=== PATIENT | male | born 1980 | race Caucasian/White ===

== ENCOUNTER 2019-01-22 21:52 | Inpatient (IN) | payer OTHER, SELFPAY ==
--- NOTE | ~2019-01-22 | XR_ITS ---
EXAMINATION: XR chest ET placement DATE: 01/24/2019 21:20 INDICATION: Intubation. TECHNIQUE: A single frontal view of the chest was obtained. COMPARISON: Chest single view 02/13/2017 FINDINGS: There is mild scarring at the lung apices. No pleural effusion or pneumothorax. The heart s ize is normal. The endotracheal tube tip is 9.4 cm above the liz. The nasogastric tube tip is in t he stomach with proximal side port in the distal esophagus. IMPRESSION: 1. Endotracheal tube tip 9.4 cm above the liz. Advancement is recommended. 2. Nasogastric tube tip in the stomach with proximal side port in the distal esophagus. Advancement 5 mm is recommended. Reviewed, dictated and finalized at location A. UCTION OFFICER IMPRESSION: 1. Endotracheal tube tip 9.4 cm above the liz. Advancement is recommended. 2. Nasogastric tube tip in the stomach with proximal side port in the distal es ophagus. Advancement 5 mm is recommended.
--- NOTE | ~2019-01-22 | XR_ITS ---
EXAMINATION: XR abdomen NG/feed tube insert DATE: 01/24/2019 21:19 INDICATION: Nasogastric tube placement. TECHNIQUE: An upright view of the abdomen was obtained. COMPARISON: None. FINDINGS: The lower abdomen is not included. There are no dilated loops of bowel. The nasogastric tub e tip is in the stomach. The proximal side port is in the distal esophagus. IMPRESSION: 1. Nasogastric tube tip in the stomach with proximal side port in the distal esophagus. Advancement 5 cm is recommended. Reviewed, dictated and finalized at location A. GEMENT MGR IMPRESSION: 1. Nasogastric tube tip in the stomach with proximal side port in the distal es ophagus. Advancement 5 cm is recommended.
[2019-01-22 21:55] VITALS: BP 151/104; PULSE 109; RESP 17; TEMP 36.9; O2SAT 99
--- NOTE | 2019-01-22 22:00 | ED.ABDPAIN ---
HPI - Abdominal Pain General Chief Complaint: Abdominal Pain Stated Complaint: ABD Time Seen by Provider: 01/22/19 21:59 Source: patient Mode of arrival: EMS Limitations: no limitations History of Present Illness HPI narrative: The pt is a 39 y/o male who presents to the ED, via EMS, c/o constant LUQ ABD pain onset one week ago. Pt states that he has a PMHx of pancreatitis, and that this pain feels similar to those episodes. He notes that he has a social history of alcoholism, with him drinking 1 gallon of alcohol per day. He notes that he only had a beer today, but that he has experienced decreased intake. He reports N/V, but denies fever. He notes that his sugars have been well maintained. MD elicited complaint: abdominal pain (LUQ) Pertinent past history: other (PMHx of Pancreatitis) Onset (ago): week(s) (1) Pain Consistency: constant Location: LUQ Severity: similar to previous episodes Associated symptoms: nausea, vomiting and other (Decreased intake) Related Data Home Medications Medication Instructions Recorded Confirmed gabapentin 800 mg PO BID 01/05/19 01/12/19 insulin lispro [Admelog U-100 1 sliding scale dose SUBCUT 01/05/19 01/12/19 Insulin lispro] USEASDIRECTD Allergies Allergy/AdvReac Type Severity Reaction Status Date / Time No Known Allergies Allergy Unknown Verified 01/12/19 13:54 Review of Systems Review of Systems: All systems reviewed & are unremarkable except as noted in HPI and below Constitutional: Constitutional: Denies fever(s) and Reports other (Decreased intake) Gastrointestinal: Gastrointestinal: Reports abdominal pain (LUQ), Reports nausea and Reports vomiting PMFSH Past Medical History Medical History Chronic anemia (Acute) Depression with anxiety (Acute) GERD (gastroesophageal reflux disease) (Acute) Hepatitis C (Acute) Kidney stone (Acute) Pancreatitis (Acute) Pancreatitis, acute (Acute) Pancreatitis, chronic (Acute) Polysubstance abuse (Acute) Type I diabetes mellitus (Chronic) Surgical History Surgical History H/O nasal septoplasty (Acute) Family History Family History Father Brain cancer Sibling Diabetes mellitus Mother COPD (chronic obstructive pulmonary disease) Social History Social History Social History: The patient lives in [place]. He has 2 teenaged children, although they are not currently living with him at this time. He is unemployed. He smokes 0.5 to 1 packs of cigarettes per day for 20 years. He has a longstanding history of alcohol abuse, and drinks most days. He does not qualify his alcohol intake. He has a history of illicit drug use, including marijuana and heroin, but has been clean ?for quite some time.? He does not designate a surrogate decision maker. Smoking packs per day: 0.5 Smoking cigarettes per day: 10.0 Smoking status: Current every day smoker Tobacco type: cigarettes Alcohol intake: current Drinks per week: 80 Substance use: unknown Other substance usage details: the patient stated his younger years he used all kinds of Street drugs Last use: many years ago Additional living arrangements comments: new town housing Additional occupation/education comments: applying for disability Gender identity (if verbalized by the patient): Male Spiritual care concerns: No Agree to blood products: Yes Exam Narrative: Exam Narrative: APPEARANCE: No acute distress, nontoxic, resting in bed EYES: EOMI HEENT: Normocephalic, atraumatic, oral mucosa dry RESPIRATORY: No respiratory distress Clear to auscultation bilaterally with no rhonchi wheezing or rales. CARDIOVASCULAR: Regular rate and rhythm without murmurs rubs or gallops. ABDOMINAL: Soft, nondistended, tender to palpation and epigastric and rig
[2019-01-22] MEDS: SODIUM CHLORIDE 0.9% IV 1,000 ML 999 ML IV CONT ×2 (22:11→22:37)
[2019-01-22 22:17] LABS: Basophils Percent Auto 0.5 % (0.2-1.2); Eosinophils Absolute Auto 0.1 K/mm3 (0-0.3); Eosinophils Percent Auto 1.2 % (0-4.4); Hematocrit 41.4 % (42.0-52.0); Hemoglobin 14.4 g/dL (14.0-18.0); Immature Granulocyte Absolute 0.01 K/mm3 (0.00-0.031); Immature Granulocyte Percent A 0.2 % (0-0.5); Lymphocytes Absolute Auto 1.96 K/mm3 (0.9-3.2); Mean Corpuscular HGB Conc 34.8 g/dl (32-36); Mean Corpuscular Hemoglobin 33.3 pg (26-34); Mean Corpuscular Volume 95.6 fl (80-100); Mean Platelet Volume 9.1 fl (7.4-10.4); Monocytes Absolute Auto 0.5 K/mm3 (0.1-0.6); Monocytes Percent Auto 7.8 % (2.6-8.5); Neutrophils Absolute Auto 3.3 K/mm3 (1.3-6.7); Neutrophils Percent Auto 56.3 % (45.5-73.1); Platelet Count Result 288 k/mm3 (150-375); Red Blood Count 4.33 M/mm3 (4.6-6.20); Red Cell Distribution Width 13.2 % (11.5-14.5); White Blood Count 5.8 K/mm3 (4.5-10.0)
--- NOTE | 2019-01-22 22:22 | PC.NURSE ---
Pt asking for pain medication. EDP notified.
[2019-01-22 22:26] LABS: Add Urine Microscopic? YES; Appearance Urine Clear (Clear); Bilirubin Urine Negative (Negative); Blood Urine 1+ (Negative); Color Urine Straw (Yellow); Glucose Urine UA 3+ mg/dL (Negative); Ketones Urine Negative (Negative); Leukocyte Esterase Ur Negative LEU/UL (Negative); Mucus Urine Rare /lpf; Nitrate Urine Negative (Negative); Protein Urine 1+ mg/dL (Negative); RBC Urine 0-2 /hpf (0-2); Specific Grav Ur 1.011 (1.001-1.035); Squamous Epithelial Cell Urine Rare /hpf (Few); Urobilinogen Urine Negative mg/dL (<2.0); WBC Urine 0-3
[2019-01-22 22:26] LABS: Glucose Point of Care 217 (65-105)
[2019-01-22 22:29] LABS: Ethanol 246 mg/dL (<10)
[2019-01-22 22:30] LABS: Alanine Aminotransferase 31 U/L (4-50); Albumin Level 4.6 g/dL (3.5-5.1); Alkaline Phosphatase 141 U/L (38-126); Aspartate Amino Transferase 60 U/L (17-59); Bilirubin,Total 0.6 mg/dL (0.2-1.3); Blood Urea Nitrogen 6 mg/dL (9-20); Calcium 9.4 mg/dL (8.4-10.2); Carbon Dioxide 25 mmol/L (22-30); Chloride 94 mmol/L (98-107); Estimated Glomerular Filt Rate > 60; Glucose 271 mg/dL (75-110); Lipase 1748 U/L (23-300); Potassium 3.6 mmol/L (3.4-5.0); Sodium 137 mmol/L (137-145)
[2019-01-22] MEDS: MORPHINE SULFATE 4 MG/ML INJ IV PUSH (22:31)
[2019-01-22 23:01] VITALS: TEMP 36.9
[2019-01-22 23:30] VITALS: BP 151/94; PULSE 80; RESP 15; O2SAT 99
[2019-01-22] MEDS: THIAMINE HCL 200 MG/2 ML VIAL 100 MG IV PUSH (23:41)
[2019-01-23 00:11] LABS: Alveolar/Arterial O2 Gradient 20.8 mmHg; Base Excess ABG -2.7 mEq/l (+/-2.0); Device ROOM AIR; Fractional Inspired Oxygen 21 %; HCO3 ABG 20.5 mEq/l (22.0-26.0); Modified Allen's Test Pass; Oxygen Content ABG 17.7 %vol (16.0-22.0); Oxygen Saturation ABG 97.3 % (95.0-100.0); Oxyhemoglobin 92.2 % THb (90.0-100.0); PCO2 ABG 31.1 mmHg (35.0-45.0); PO2 ABG 91.7 mmHg (80.0-100.0); PO2 FiO2 Ratio Arterial Blood 4.37 %; Site Drawn LEFT RADIAL; Total Hemoglobin 13.6 g/dL (12.0-18.0); pH ABG 7.436 (7.350-7.450)
[2019-01-23] MEDS: MORPHINE SULFATE 2 MG/ML INJ IV PUSH (00:34)
[2019-01-23 00:55] VITALS: BP 131/93; PULSE 91; RESP 19; TEMP 36.7; O2SAT 100
[2019-01-23 01:10] VITALS: BP 149/92; PULSE 86; RESP 20; TEMP 36.7; O2SAT 97; BMI 21.7
[2019-01-23] MEDS: ONDANSETRON INJ 4 MG/2 ML VIAL IV PUSH ×4 (01:19→14:46)
[2019-01-23] MEDS: SODIUM CHLORIDE 0.9% IV 1,000 ML 150 ML IV CONT ×4 (01:20→21:06)
[2019-01-23] MEDS: MORPHINE SULFATE 4 MG/ML INJ IV PUSH ×7 (02:23→23:34)
[2019-01-23 03:25] LABS: Glucose Point of Care 104 (65-105)
[2019-01-23 05:48] VITALS: BP 154/85; PULSE 81; RESP 18; TEMP 36.2; O2SAT 97
[2019-01-23] MEDS: LORAZEPAM INJ 2 MG/ML VIAL 1 MG IV PUSH ×3 (11:53→21:10)
[2019-01-23] MEDS: INSULIN GLARGINE (*BKC) 100 UNITS/ML 10 UNITS SUB-Q (12:41)
[2019-01-23 13:18] LABS: Glucose Point of Care 223 (65-105)
[2019-01-23 14:00] VITALS: BP 156/85; PULSE 75; RESP 18; TEMP 36.1; O2SAT 99
[2019-01-23 17:34] LABS: Glucose Point of Care 159 (65-105)
--- NOTE | 2019-01-23 20:25 | HP_ITS ---
DATE OF SERVICE: 01/23/2019 TIME OF [id number] ENCOUNTER: 11:30 a.m. CHIEF COMPLAINT: Nausea, vomiting, abdominal pain. HISTORY OF PRESENT ILLNESS: The patient is a 39-year-old, diabetic, alcoholic with recurrent pancreatitis who was discharged from the hospital on the 12th after treatment for pancreatitis. He said at that time he was doing fairly well, pain had subsided and he was doing well. Since he has been home, he started drinking alcohol again and has been drinking as much as a gallon of vodka a day. On the day of admission, he had some beer, started having nausea and vomiting, and the abdominal pain gradually worsened, so he came to the emergency room for evaluation. Here, he was found to have a lipase of 1700 and thus was admitted for evaluation and treatment of the same, got evaluated with CT scans, sonograms, lipid levels, etc. in the past. Etiology of his pancreatitis was thought to be alcohol. MEDICATIONS: On admission, his medications included: 1. Gabapentin 800 t.i.d. 2. NovoLog 5 units subcu t.i.d. 3. Lantus 25 units q.12. SOCIAL HISTORY: As stated, drinking worth of a gallon of vodka a day and smokes about half-pack cigarettes a day, and has done so for years. Years ago did drugs, but has been clean for some time. Presently, he lives alone and has been trying to apply for disability. FAMILY HISTORY: Father has preceded him in , had brain carcinoma. Mother is living, has COPD. REVIEW OF SYSTEMS: CONSTITUTIONAL: His weight as far as he knows is stable, but he had not been able to eat anything for several days. EYES: No double vision or scotoma. MOUTH: No pharyngitis or laryngitis. PULMONARY: No increased shortness of breath, wheezing or cough. CV: No chest pain or palpitation. GI: As per present illness. He said he did have a bowel movement yesterday. : No dysuria. No hematuria. MUSCULOSKELETAL: No particular joint discomfort. INTEGUMENT: No skin breakdown or rashes. NEUROPSYCH: No seizures. No syncope. The remainder of review of systems if not documented here were evaluated and found to be negative. PHYSICAL EXAMINATION: VITAL SIGNS: At present time, his blood pressure was 154/84, pulse 75, respirations 18 per minute, sat 99% on room air. HEENT: Pupils are equal and reactive to light. Sclerae anicteric. LUNGS: Clear. No wheezing or consolidation. CV: No murmurs, gallops, rubs, or clicks. ABDOMEN: Soft. There is some tenderness, especially epigastric area. Bowel sounds are decreased to absent at this time. EXTREMITIES: Without edema. Distal pulses are 2+. NEUROLOGICAL: He is alert. He is oriented. Cranial nerves are intact. No focal deficits . PSYCH in obvious distress and pain LABORATORY DATA: His white count is 5.8, hemoglobin 14.4, hematocrit 41, MCV of 95, platelets 288, with 56 segs, 34 lymphs. Arterial blood gas 7.43, pCO2 of 31, PO2 of 91. His sodium 137, potassium 3.6, chloride 94, total CO2 of 25, BUN 6, creatinine 0.5, glucose 271 initially, bilirubin 0.6, AST slightly elevated at 60, ALT normal at 31, alkaline phosphatase 141. BNP as stated 1748. Urinalysis is negative. His ethanol level, ethyl, was 246. ASSESSMENT: 1. Pancreatitis, alcohol-induced. Hydrate aggressively. Pain control. 2. Diabetes mellitus. CO2 is normal. Sugar is fair. We will give basal Lantus and sliding scale. 3. ETOH abuse, could be having some early withdrawal at the present time. Continue hydration p.r.n. IV Ativan. 4. DVT prophylaxis will be the Lovenox. He will need more than a 2-midnight stay again. D I MT: Onur CHINCHILLA
[2019-01-23 22:00] VITALS: BP 153/92; PULSE 85; RESP 20; TEMP 36.1; O2SAT 99
[2019-01-23 22:46] LABS: Glucose Point of Care 111 (65-105)
[2019-01-24] VITALS (10 sets, daily range): BP systolic 89–149; BP diastolic 61–92; PULSE 58–104; RESP 16–20; TEMP 36.2; O2SAT 99–100
[2019-01-24] MEDS: LORAZEPAM INJ 2 MG/ML VIAL 1 MG IV PUSH ×3 (01:19→08:56)
[2019-01-24] MEDS: ONDANSETRON INJ 4 MG/2 ML VIAL IV PUSH ×2 (03:13→06:47)
[2019-01-24] MEDS: MORPHINE SULFATE 4 MG/ML INJ IV PUSH ×5 (03:16→19:00)
[2019-01-24] MEDS: SODIUM CHLORIDE 0.9% IV 1,000 ML 150 ML IV CONT (03:58)
[2019-01-24 05:55] LABS: Basophils Percent Auto 0.6 % (0.2-1.2); Eosinophils Absolute Auto 0.4 K/mm3 (0-0.3); Eosinophils Percent Auto 6.5 % (0-4.4); Hematocrit 37.5 % (42.0-52.0); Hemoglobin 12.6 g/dL (14.0-18.0); Immature Granulocyte Absolute 0.01 K/mm3 (0.00-0.031); Immature Granulocyte Percent A 0.2 % (0-0.5); Lymphocytes Absolute Auto 1.23 K/mm3 (0.9-3.2); Lymphocytes Percent Auto 22.9 % (18.3-44.2); Mean Corpuscular HGB Conc 33.6 g/dl (32-36); Mean Corpuscular Hemoglobin 32.5 pg (26-34); Mean Corpuscular Volume 96.6 fl (80-100); Mean Platelet Volume 9.7 fl (7.4-10.4); Monocytes Absolute Auto 0.4 K/mm3 (0.1-0.6); Monocytes Percent Auto 6.9 % (2.6-8.5); Neutrophils Absolute Auto 3.4 K/mm3 (1.3-6.7); Neutrophils Percent Auto 62.9 % (45.5-73.1); Platelet Count Result 155 k/mm3 (150-375); Red Blood Count 3.88 M/mm3 (4.6-6.20); Red Cell Distribution Width 12.4 % (11.5-14.5); White Blood Count 5.4 K/mm3 (4.5-10.0)
[2019-01-24 06:06] LABS: Magnesium 1.4 mg/dL (1.6-2.3)
[2019-01-24 06:08] LABS: Alanine Aminotransferase 26 U/L (4-50); Albumin Level 3.7 g/dL (3.5-5.1); Alkaline Phosphatase 108 U/L (38-126); Aspartate Amino Transferase 44 U/L (17-59); Bilirubin,Total 0.9 mg/dL (0.2-1.3); Blood Urea Nitrogen 5 mg/dL (9-20); Calcium 7.8 mg/dL (8.4-10.2); Carbon Dioxide 22 mmol/L (22-30); Chloride 95 mmol/L (98-107); Estimated CRCL calculation 230 ml/min; Estimated Glomerular Filt Rate > 60; Glucose 166 mg/dL (75-110); Lipase 505 U/L (23-300); Potassium 3.4 mmol/L (3.4-5.0); Sodium 130 mmol/L (137-145)
[2019-01-24] MEDS: ENOXAPARIN 40 MG/0.4 ML SYRINGE SUB-Q (09:01)
[2019-01-24] MEDS: POTASSIUM PHOS,M-BASIC-D-BASIC 20 MMOL in SODIUM CHLORIDE 0.9% IV 250 ML 62.5 MMOL IVPB (09:03)
[2019-01-24 09:26] LABS: Glucose Point of Care 162 (65-105)
[2019-01-24] MEDS: CHLORDIAZEPOXIDE 25 MG CAPSULE 50 MG PO ×2 (10:22→17:26)
[2019-01-24] MEDS: INSULIN GLARGINE (*BKC) 100 UNITS/ML 15 UNITS SUB-Q (11:35)
--- NOTE | 2019-01-24 12:41 | PM.IMPN ---
Progress Note: A&P Assessment and Plan (1) Pancreatitis, acute: Qualifiers: Acute pancreatitis complication: unspecified Pancreatitis type: unspecified pancreatitis type Qualified Code(s): K85.90 - Acute pancreatitis without necrosis or infection, unspecified Code(s): K85.90 - Acute pancreatitis without necrosis or infection, unspecified Status: Acute Assessment and Plan: Lipase is dropped to 505 and bowel sounds increasing so will try clear liquids Replace potassium, magnesium, and phosphorus (2) Type I diabetes mellitus: Qualifiers: Diabetes mellitus complication status: with hyperglycemia Qualified Code(s): E10.65 - Type 1 diabetes mellitus with hyperglycemia Code(s): E10.9 - Type 1 diabetes mellitus without complications Status: Chronic Assessment and Plan: Blood sugar fair controlled. Low-dose Lantus with sliding scale (3) Alcohol abuse: Code(s): F10.10 - Alcohol abuse, uncomplicated Status: Acute Assessment and Plan: For thiamin. Appears to be exhibiting symptoms of withdrawal. Will increase his sedation with increasing doses of Ativan and had p.o. Librium (4) DVT prophylaxis: Code(s): Z29.9 - Encounter for prophylactic measures, unspecified Status: Acute Assessment and Plan: Lovenox Subjective Interval history: Date of visit 01/24. 39-year-old diabetic alcoholic admitted with recurrent pancreatitis. Pain less this a.m. but very agitated. Requiring higher doses of benzos diazepam had had episodes of hallucination last p.m. Exam Narrative: Exam Narrative: Blood pressure 146/84 pulse is 74 saturating 99% on room air afebrile Pupils equal reactive light sclera anicteric Lungs clear CV regular rate rhythm no murmurs Abdomen soft bowel sounds are slightly decreased but present today, less tender Extremities without edema distal pulses are 2+ Neuro alert and appears oriented at present time but apparently was hallucinating earlier. No focal deficits Objective Data Vital Signs Vital Signs: Vital Signs - 24 hr 01/23/19 14:00 01/23/19 22:00 01/24/19 06:00 Temperature 36.1 C L 36.1 C L 36.2 C L Pulse Rate 75 85 74 Respiratory Rate 18 20 20 Blood Pressure 156/85 H 153/92 H 149/89 H Pulse Oximetry 99 99 99 Intake/Output Intake/Output: Intake & Output 01/21/19 01/22/19 01/23/19 01/24/19 23:59 23:59 23:59 23:59 Intake Total 1999 2830 1132 Output Total 2150 1000 Balance 1999 682 132 Meds/Results Medications: Active Medications Generic Name Dose Route Start Last Admin Trade Name Freq PRN Reason Stop Dose Admin Chlordiazepoxide HCl 50 mg 01/24/19 12:00 01/24/19 10:22 Librium Po PO 50 mg Q6HR ROSE Administration Dextrose 12.5 gm 01/23/19 12:01 Dextrose 50% Syringe IV PUSH PRN PRN Hypoglycemia Protocol Enoxaparin Sodium 40 mg 01/24/19 09:00 01/24/19 09:01 Lovenox SUB-Q 40 mg DAILY ROSE Administration Glucagon 1 mg 01/23/19 12:01 Glucagon For Inj IM PRN PRN Hypoglycemia Protocol Glucose 15 gm 01/23/19 12:01 Glutose 15 PO PRN PRN Hypoglycemia Protocol Sodium Chloride 1,000 mls @ 150 mls/hr 01/23/19 01:05 01/24/19 09:03 Normal Saline Iv IV CONT 0 mls/hr .Q6H40M ROSE Infusion Dextrose 1,000 mls @ 100 mls/hr 01/23/19 12:01 Dextrose 5% 1,000 Ml IVPB PRN PRN Hypoglycemia Protocol Insulin Aspart 3 - 6 units 01/23/19 17:00 01/24/19 08:59 Novolog SUB-Q Not Given TIDWM ROSE Protocol Lorazepam 2 mg 01/24/19 12:37 Ativan IV PUSH Q1H PRN Anxiety Morphine Sulfate 4 mg 01/23/19 11:26 01/24/19 10:49 Morphine Sulfate Inj IV PUSH 4 mg Q3-4H PRN Administration Pain Rated 7-10 Nicotine 1 patch 01/23/19 13:35 01/24/19 09:46 Nicoderm Cq 21 Mg TRANSDERM 1 patch QAM ROSE Administration Ondansetron HCl 4 mg 01/23/19 00:29 01/24/19 06:47
[2019-01-24] MEDS: LORAZEPAM INJ 2 MG/ML VIAL IV PUSH ×3 (12:43→20:09)
--- NOTE | 2019-01-24 12:43 | PC.NURSE ---
Dr. Torres notified of pt more confused and and thinking he is in [place]. Not easily redirected. New orders received.
[2019-01-24] MEDS: INSULIN ASPART (*BKC) 100 UNITS/ML 25 UNITS SUB-Q (13:17)
[2019-01-24] MEDS: INSULIN GLARGINE (*BKC) 100 UNITS/ML 10 UNITS SUB-Q ×2 (13:21→20:12)
[2019-01-24] MEDS: MAGNESIUM SULF 2 GM/WATER 50ML 2 GM/50 ML BAG IVPB (13:23)
--- NOTE | 2019-01-24 13:45 | PC.NURSE ---
PT CONFUSED AND TRYING TO LEAVE THE FLOOR. GLUCODSE ELEVATED >500. PT WALKED OFF FLOOR AND HEADED OUT THE DOOR. IV TAKEN OUT. DR KAMARA NOTIFIED
--- NOTE | 2019-01-24 13:49 | PC.NURSE ---
Patient pacing back and forth in room, wanting his IV out and wanting to go smoke. Patient was given insulin for blood glucose of 567. Recently received IV Ativan. Discussed all risks with patient and explained to him that he is being treated for multiple issues. Patient disoriented at times, thinking he is in [place]. At other times, he is aware that he is in the hospital and states I just want to smoke. Explained to patient that he cannot go outside to smoke since he has received multiple meds and needs close monitoring. Patient states he is leaving whether we want him to or not. He states his friend is coming to bring him bus tokens. Patient then got up and pulled at his IV stating take it out . I removed patient's IV needle and patient grabbed his stuff and walked to the elevator and left. Called Dr. Torres and made him aware of the situation. Also notified security who stated they would go downstairs to assess the situation as well.
[2019-01-24 14:04] LABS: Glucose Point of Care > 500 (65-105)
--- NOTE | 2019-01-24 14:18 | PC.NURSE ---
Patient returned to floor with staff per wheelchair and IV restarted. Dr. Torres aware that patient is back. Patient to transfer to ICU-7. SBAR faxed to ICU.
--- NOTE | 2019-01-24 14:41 | PC.NURSE ---
Patient transferred to ICU via wheelchair with staff. Report given to Sera RN and SBAR faxed. Patient transferred to ICU-7.
--- NOTE | 2019-01-24 15:52 | WPDCNINT ---
Assessment and Plan Assessment and plan (1) Pancreatitis, acute: Qualifiers: Acute pancreatitis complication: unspecified Pancreatitis type: unspecified pancreatitis type Qualified Code(s): K85.90 - Acute pancreatitis without necrosis or infection, unspecified Code(s): K85.90 - Acute pancreatitis without necrosis or infection, unspecified Status: Acute Assessment and Plan: patient presented with abdominal pain, nausea vomiting. Elevated lipase on admission, patient was hydrated adequately and lipase has been trending down. - Patient started on clear liquids - continue to monitor lipase level - acute on chronic pancreatitis likely related to alcohol - control pain with morphine (2) Type I diabetes mellitus: Qualifiers: Diabetes mellitus complication status: with hyperglycemia Qualified Code(s): E10.65 - Type 1 diabetes mellitus with hyperglycemia Code(s): E10.9 - Type 1 diabetes mellitus without complications Status: Chronic Assessment and Plan: blood sugars have been stable - will discontinue D5 in the IV fluids and start patient on LR - started Lantus 10 units q.h.s. starting today (3) Alcohol abuse: Code(s): F10.10 - Alcohol abuse, uncomplicated Status: Acute Assessment and Plan: alcohol abuse, patient drinks 1 gallon of vodka daily - patient with symptoms of alcohol withdrawal and was transferred to the ICU for Precedex infusion as he received increasing doses of Ativan and Librium - continue thiamine and folic acid - patient started on Precedex, (4) DVT prophylaxis: Code(s): Z29.9 - Encounter for prophylactic measures, unspecified Status: Acute Assessment and Plan: Lovenox Additional Plan discussed with patient and updated with his condition and plan of care. He is requesting for pain medications which have been ordered for him and will be dispensed code status: full code critical care time spent: 38 minutes Consult date: 01/24/19 Time Seen: 15:33 Reason for consult: alcohol withdrawal, acute chronic pancreatitis, hyperglycemia HPI: Wes Pan II is a 39 year old male with significant past medical history of chronic anemia, depression anxiety, genital herpes, GERD, kidney stones, acute on chronic pancreatitis, polysubstance abuse, alcoholism, type 1 diabetes with multiple admissions for DKA presented to the ED on 01/22/2019 with complains of epigastric abdominal pain. Patient also complained of nausea and vomiting. patient also complained of decreased oral intake, and is known to drink a gallon of vodka a day and smokes half a packet cigarettes per day of for many years. patient's lipase was elevated to 1700. Patient's alcohol levels were 246 on admission. Patient was diagnosed with alcoholic induced pancreatitis and was given IV fluid hydration. Patient also has a history of alcohol abuse and this afternoon patient was exhibiting symptoms of alcohol withdrawal, was given increasing doses of Ativan and p.o. Librium. Patient was transfer the ICU for Precedex infusion. Patient seen examined upon arrival to the ICU. Is awake, alert answers to questions appropriately, complaining of epigastric abdominal pain. blood sugars a 181 in the ICU, requesting for pain medications. Patient is tremulous, but calm on Precedex infusion 0.2 mcg. Patient denies any nausea, vomiting, chest pain, shortness of breath at this time Review of Systems Review of Systems: All systems reviewed & are unremarkable except as noted in HPI and below PMFSH Past Medical History Medical History Chronic anemia (Acute) Depression with anxiety (Acute) GERD (gastroesophageal reflux disease) (Acute) Hepatitis C (Acute) Kidney stone (Acute) Pancreatitis (Acute) Pancreatitis, acute (Acute) Pancreatitis, chronic (Acute) Polysubstance abuse (Acute) Type I diabe
[2019-01-24 16:06] LABS: Glucose Point of Care 182 (65-105)
[2019-01-24] MEDS: LACTATED RINGERS 1,000 ML 150 ML IV CONT (16:23)
[2019-01-24 16:30] LABS: Blood Urea Nitrogen 8 mg/dL (9-20); Calcium 8.4 mg/dL (8.4-10.2); Carbon Dioxide 22 mmol/L (22-30); Chloride 98 mmol/L (98-107); Estimated CRCL calculation 189 ml/min; Estimated Glomerular Filt Rate > 60; Glucose 176 mg/dL (75-110); Magnesium 2.3 mg/dL (1.6-2.3); Phosphorus 2.3 mg/dL (2.5-4.5); Potassium 3.7 mmol/L (3.4-5.0); Sodium 131 mmol/L (137-145)
[2019-01-24 19:53] LABS: Glucose Point of Care 218 (65-105)
--- NOTE | 2019-01-24 21:02 | P.PCNBED_ITS ---
Procedures Intubation: Intubation Date: 01/24/19 Intubation Time: 21:02 A pre- procedural Time-Out was completed immediately before starting the procedure and confirmed: Patient Identification, Site, Procedure, Patient Position and the Availability of Requisite Equipment: Yes Sedative: ketamine (IM) Mg given: 500 Paralytic: succinylcholine Mg given: 150 Laryngoscope: fiber optic video scope ET tube size: 8 Tube secured depth (cm): 24 Tube secured l ocation: teeth Tube placement confirmation: visualized tube passing through cords and confirmation by capnometry Patient tolerated procedure: well Intubation complications: none Additional comments: Date of service of procedure was 01/24/2019 at 21:00 hrs
--- NOTE | 2019-01-24 21:02 | PM.CCN ---
Critical Care Event Note Summary Code activated: No Narrative: Code purple note I was called to bedside via overhead code purple announcement. On arrival to ICU this 39-year-old male who is being treated for acute alcohol withdrawal was attempting to try to exit the ICU. Nursing staff alerted me that the patient was maxed out on IV Precedex and he pulled out his IV and immediately got out of bed and attempted to run out of the ICU. Several staff members and myself attempted to try to get the patient to go back to his room and the patient seemed delirious, confused, and paranoid. He kept telling us to get away from him and that he wanted to leave. [place] police were contacted by the supervisor [facility]. The patient finally went back into his room but again became very combative. I administered ketamine IM to the patient. The patient was restrained in the bed and soft restraints were placed. The patient was then treated with 2 mg of Versed IV. The patient continued to be combative and required to be sedated and urgent endotracheal intubation. Rapid sequence intubation was performed and the patient was intubated and placed on mechanical ventilation. The patient was sedated with IV Versed, fentanyl, and propofol. Nursing staff contacted the patient's girlfriend and gave her an update of what had transpired overnight. Total critical care time with the patient exceeded 37 minutes tonight. Critical care time: 30 - 74 mins
[2019-01-24] MEDS: MIDAZOLAM HCL 50 MG in DEXTROSE 5% 90 ML 8 MG IV CONT (21:15)
[2019-01-24] MEDS: PROPOFOL IV EMULSION 100 ML 2.4 MG IV CONT (21:21)
[2019-01-24 22:42] LABS: Alveolar/Arterial O2 Gradient 89.7 mmHg; Base Excess ABG -3.4 mEq/l (+/-2.0); Device VENTILATOR; Fractional Inspired Oxygen 50 %; HCO3 ABG 19.1 mEq/l (22.0-26.0); Oxygen Content ABG 17.7 %vol (16.0-22.0); Oxygen Saturation ABG 99.6 % (95.0-100.0); Oxyhemoglobin 98.1 % THb (90.0-100.0); PCO2 ABG 27.1 mmHg (35.0-45.0); PO2 ABG 236.3 mmHg (80.0-100.0); PO2 FiO2 Ratio Arterial Blood 4.73 %; Site Drawn RIGHT BRACHIAL; Total Hemoglobin 12.4 g/dL (12.0-18.0); pH ABG 7.465 (7.350-7.450)
[2019-01-24 22:45] LABS: Arterial Blood Gas Vent Mode CMV; Arterial Blood Gas Ventilator rate 16 /MIN
[2019-01-24 22:46] LABS: Arterial Blood Gas PEEP 5 cmH2O; Arterial Blood Gas Tidal Volume 550 ml
[2019-01-25] VITALS (22 sets, daily range): BP systolic 91–167; BP diastolic 62–105; PULSE 52–86; RESP 12–16; TEMP 35.6–36.9; O2SAT 98–100
[2019-01-25 00:08] LABS: Glucose Point of Care 251 (65-105)
[2019-01-25] MEDS: LACTATED RINGERS 1,000 ML 150 ML IV CONT ×4 (00:32→21:04)
[2019-01-25 00:45] LABS: Amphetamine Screen Urine Negative (Negative); Barbiturate Screen Urine Negative (Negative); Benzodiazepines Screen Urine Positive (Negative); Cannabinoid Screen Urine Negative (Negative); Cocaine Screen Urine Negative (Negative); Methadone Screen Urine Negative (Negative); Opiate Screen Urine Positive (Negative); Phencyclidine Screen Urine Negative (Negative)
[2019-01-25] MEDS: INSULIN ASPART (*BKC) 100 UNITS/ML SUB-Q (01:01)
[2019-01-25] MEDS: PROPOFOL IV EMULSION 100 ML 14.5 MG IV CONT (02:14)
[2019-01-25 04:59] LABS: Basophils Percent Auto 0.6 % (0.2-1.2); Eosinophils Absolute Auto 0.3 K/mm3 (0-0.3); Eosinophils Percent Auto 6.4 % (0-4.4); Hematocrit 34.5 % (42.0-52.0); Hemoglobin 11.6 g/dL (14.0-18.0); Immature Granulocyte Absolute 0.01 K/mm3 (0.00-0.031); Immature Granulocyte Percent A 0.2 % (0-0.5); Lymphocytes Absolute Auto 1.45 K/mm3 (0.9-3.2); Lymphocytes Percent Auto 30.9 % (18.3-44.2); Mean Corpuscular HGB Conc 33.6 g/dl (32-36); Mean Corpuscular Volume 98.3 fl (80-100); Mean Platelet Volume 10.4 fl (7.4-10.4); Monocytes Absolute Auto 0.3 K/mm3 (0.1-0.6); Neutrophils Absolute Auto 2.6 K/mm3 (1.3-6.7); Neutrophils Percent Auto 54.9 % (45.5-73.1); Platelet Count Result 153 k/mm3 (150-375); Red Blood Count 3.51 M/mm3 (4.6-6.20); Red Cell Distribution Width 12.8 % (11.5-14.5); White Blood Count 4.7 K/mm3 (4.5-10.0)
[2019-01-25 05:10] LABS: Alanine Aminotransferase 24 U/L (4-50); Albumin Level 3.3 g/dL (3.5-5.1); Alkaline Phosphatase 95 U/L (38-126); Aspartate Amino Transferase 44 U/L (17-59); Bilirubin,Total 0.6 mg/dL (0.2-1.3); Blood Urea Nitrogen 6 mg/dL (9-20); Calcium 8.3 mg/dL (8.4-10.2); Carbon Dioxide 24 mmol/L (22-30); Chloride 104 mmol/L (98-107); Estimated CRCL calculation 189 ml/min; Estimated Glomerular Filt Rate > 60; Glucose 174 mg/dL (75-110); Lipase 465 U/L (23-300); Magnesium 2.3 mg/dL (1.6-2.3); Phosphorus 2.7 mg/dL (2.5-4.5); Potassium 3.3 mmol/L (3.4-5.0); Sodium 137 mmol/L (137-145)
[2019-01-25 05:30] LABS: Base Excess ABG 0.4 mEq/l (+/-2.0); Carboxyhemoglobin 0.5 % THb (0-2.0); Fractional Inspired Oxygen 30 %; HCO3 ABG 24.3 mEq/l (22.0-26.0); Methemoglobin ABG 0.3 %THb (0-1.5); Oxygen Content ABG 17.1 %vol (16.0-22.0); Oxygen Saturation ABG 98.5 % (95.0-100.0); PO2 ABG 122.4 mmHg (80.0-100.0); PO2 FiO2 Ratio Arterial Blood 4.08 %; Reduced Hemoglobin 2.2 %THb (0-5.0); Total Hemoglobin 12.4 g/dL (12.0-18.0); pH ABG 7.436 (7.350-7.450)
[2019-01-25 05:31] LABS: Device VENTILATOR; Site Drawn RIGHT BRACHIAL
[2019-01-25] MEDS: CHLORDIAZEPOXIDE 25 MG CAPSULE 50 MG PO ×2 (05:31)
[2019-01-25 05:32] LABS: Arterial Blood Gas PEEP 5 cmH2O; Arterial Blood Gas Tidal Volume 550 ml; Arterial Blood Gas Vent Mode CMV; Arterial Blood Gas Ventilator rate 12 /MIN
[2019-01-25] MEDS: PROPOFOL IV EMULSION 100 ML 16.9 MG IV CONT ×2 (07:17→12:25)
[2019-01-25] MEDS: THIAMINE HCL 200 MG/2 ML VIAL 100 MG IV PUSH (08:05)
[2019-01-25] MEDS: ENOXAPARIN 40 MG/0.4 ML SYRINGE SUB-Q (08:05)
[2019-01-25] MEDS: MIDAZOLAM HCL 50 MG in DEXTROSE 5% 90 ML 10 MG IV CONT (08:07)
[2019-01-25] MEDS: FOLIC ACID 1 MG/0.2 ML INJ IV PUSH (09:19)
--- NOTE | 2019-01-25 12:00 | WPDINTPN ---
Progress Note: A&P Assessment and Plan (1) Acute respiratory failure: Code(s): J96.00 - Acute respiratory failure, unspecified whether with hypoxia or hypercapnia Status: Acute Assessment and Plan: Pt was intubated overnight due to severe agitation requiring sedation. Will continue mechanical ventilation today and plan for SAT/SBT in AM. (2) Pancreatitis, acute: Qualifiers: Acute pancreatitis complication: unspecified Pancreatitis type: unspecified pancreatitis type Qualified Code(s): K85.90 - Acute pancreatitis without necrosis or infection, unspecified Code(s): K85.90 - Acute pancreatitis without necrosis or infection, unspecified Status: Acute Assessment and Plan: Due to alcohol abuse most likely. Will check triglycerides. Lipase is improving. Consider imaging if symptoms persist or worsen. No clinical signs of necrotizing pancreatitis. (3) Alcohol withdrawal: Code(s): F10.239 - Alcohol dependence with withdrawal, unspecified Status: Acute Assessment and Plan: Currently on Versed gtt; will stop Librium. Continue thiamine. (4) Type I diabetes mellitus: Qualifiers: Diabetes mellitus complication status: with hyperglycemia Qualified Code(s): E10.65 - Type 1 diabetes mellitus with hyperglycemia Code(s): E10.9 - Type 1 diabetes mellitus without complications Status: Chronic Assessment and Plan: Continue Lantus and SSI. (5) Tobacco abuse: Code(s): Z72.0 - Tobacco use Status: Acute Assessment and Plan: Continue nicotine patch. Pt will need counseling about cessation when able. Time Spent With Patient Time: Critical care time: 45 minutes. Subjective Interval history: Pt with acute alcoholic pancreatitis and alcohol withdrawal. He was intubated overnight due to severe agitation. He is currently on propofol, fentanyl, and Versed infusions. Review of Systems Review of Systems: ROS unobtainable: due to endotracheal tube Exam Const: General: no acute distress Other: sedated Eyes: Pupils: PERRL Resp: Auscultation: clear to auscultation bilaterally Cardio: Rate: regular rate Rhythm: regular rhythm GI: Inspection: non-distended Palpation (GI): Yes soft and No tender Auscultation: abnormal bowel sounds (hypoactive) Urinary Catheter: Urinary Catheter: patent and draining Neuro: Other: sedated Extrem: General: no edema Objective Data Vital Signs Vital Signs: Vital Signs - 24 hr 01/24/19 14:00 01/24/19 15:59 01/24/19 16:00 Temperature 36.2 C L Pulse Rate 102 H 78 73 Respiratory Rate 16 18 Blood Pressure 139/91 H 128/92 H Pulse Oximetry 100 100 01/24/19 18:00 01/24/19 18:15 01/24/19 20:00 Temperature Pulse Rate 79 79 58 L Respiratory Rate 16 20 Blood Pressure 126/79 136/92 H Pulse Oximetry 99 01/24/19 20:50 01/24/19 22:00 01/24/19 23:20 Temperature Pulse Rate 104 H 66 61 Respiratory Rate 16 Blood Pressure 89/61 L Pulse Oximetry 100 100 100 01/25/19 00:00 01/25/19 02:00 01/25/19 02:15 Temperature 36.9 C Pulse Rate 57 L 55 L 57 L Respiratory Rate 12 12 Blood Pressure 93/62 L 106/74 Pulse Oximetry 100 100 100 01/25/19 04:00 01/25/19 05:15 01/25/19 06:00 Temperature 36.5 C Pulse Rate 52 L 61 58 L Respiratory Rate 13 13 Blood Pressure 105/77 101/76 Pulse Oximetry 100 100 100 01/25/19 07:33 01/25/19 08:00 01/25/19 09:51 Temperature 35.7 C L Pulse Rate 56 L 56 L 56 L Respiratory Rate 12 16 12 Blood Pressure 93/65 L 91/69 L 101/69 Pulse Oximetry 100 100 100 01/25/19 10:00 Temperature Pulse Rate 54 L Respiratory Rate Blood Pressure Pulse Oximetry Intake/Output Intake/Output: Intake & Output 01/22/19 01/23/19 01/24/19 01/25/19 23:59 23:59 23:59 23:59 Intake Total 1999 2832 4255.6667 1393 Output Total 2150 1950 2785 Balance 1999 635 6933.6667 -1392 Meds/Results Medications: Active Medications Generic Nam
[2019-01-25 12:07] LABS: Glucose Point of Care 120 (65-105)
[2019-01-25] MEDS: POTASSIUM CHLORIDE 20 MEQ PACKET (FOR LIQUID) 40 MEQ PO (12:25)
--- NOTE | 2019-01-25 14:14 | PM.IMPN ---
Progress Note: A&P Assessment and Plan (1) Pancreatitis, acute: Qualifiers: Acute pancreatitis complication: unspecified Pancreatitis type: unspecified pancreatitis type Qualified Code(s): K85.90 - Acute pancreatitis without necrosis or infection, unspecified Code(s): K85.90 - Acute pancreatitis without necrosis or infection, unspecified Status: Acute Assessment and Plan: Lipase is dropped to 465 and bowel sounds increasing and tolerated clear liquids before became more agitated. Tube feeding planned per welfare officer Replace potassium, (2) Type I diabetes mellitus: Qualifiers: Diabetes mellitus complication status: with hyperglycemia Qualified Code(s): E10.65 - Type 1 diabetes mellitus with hyperglycemia Code(s): E10.9 - Type 1 diabetes mellitus without complications Status: Chronic Assessment and Plan: Blood sugar fair controlled. Low-dose Lantus with sliding scale fbs 174 (3) Alcohol abuse: Code(s): F10.10 - Alcohol abuse, uncomplicated Status: Acute Assessment and Plan: thiamin. [place] DTs last pm requiring further sedation and eventually intubation and [facility] ventilation. (4) DVT prophylaxis: Code(s): Z29.9 - Encounter for prophylactic measures, unspecified Status: Acute Assessment and Plan: Lovenox Subjective Interval history: Date of visit 01/25. 39-year-old diabetic alcoholic admitted with recurrent pancreatitis. Became more agitiated last evening with more hallucinations and had to be sedated and intubated. currently calm with sedation Exam Narrative: Exam Narrative: Blood pressure 104/78 pulse is 60 saturating 100% on vent with FIO2 30% Pupils equal , small, sclera anicteric Lungs clear CV regular rate rhythm no murmurs Abdomen soft bowel sounds are present today, Extremities without edema distal pulses are 2+ Neuro sedated on Vent Objective Data Vital Signs Vital Signs: Vital Signs - 24 hr 01/24/19 15:59 01/24/19 16:00 01/24/19 18:00 Temperature Pulse Rate 78 73 79 Respiratory Rate 18 Blood Pressure 128/92 H Pulse Oximetry 100 01/24/19 18:15 01/24/19 20:00 01/24/19 20:50 Temperature Pulse Rate 79 58 L 104 H Respiratory Rate 16 20 Blood Pressure 126/79 136/92 H Pulse Oximetry 99 100 01/24/19 22:00 01/24/19 23:20 01/25/19 00:00 Temperature 36.9 C Pulse Rate 66 61 57 L Respiratory Rate 16 12 Blood Pressure 89/61 L 93/62 L Pulse Oximetry 100 100 100 01/25/19 02:00 01/25/19 02:15 01/25/19 04:00 Temperature 36.5 C Pulse Rate 55 L 57 L 52 L Respiratory Rate 12 13 Blood Pressure 106/74 105/77 Pulse Oximetry 100 100 100 01/25/19 05:15 01/25/19 06:00 01/25/19 07:33 Temperature 35.7 C L Pulse Rate 61 58 L 56 L Respiratory Rate 13 12 Blood Pressure 101/76 93/65 L Pulse Oximetry 100 100 100 01/25/19 08:00 01/25/19 09:51 01/25/19 10:00 Temperature Pulse Rate 56 L 56 L 54 L Respiratory Rate 16 12 Blood Pressure 91/69 L 101/69 Pulse Oximetry 100 100 01/25/19 12:00 01/25/19 12:16 01/25/19 13:54 Temperature 35.6 C L Pulse Rate 53 L 53 L 60 Respiratory Rate Blood Pressure 101/72 104/79 Pulse Oximetry 100 100 Intake/Output Intake/Output: Intake & Output 01/22/19 01/23/19 01/24/19 01/25/19 23:59 23:59 23:59 23:59 Intake Total 1999 2132 4255.6667 2650 Output Total 3852 9702 8655 Balance 1999 682 5695.6667 -135 Meds/Results Medications: Active Medications Generic Name Dose Route Start Last Admin Trade Name Freq PRN Reason Stop Dose Admin Dextrose 12.5 gm 01/23/19 12:01 Dextrose 50% Syringe IV PUSH PRN PRN Hypoglycemia Protocol Enoxaparin Sodium 40 mg 01/24/19 09:00 01/25/19 08:05 Lovenox SUB-Q 40 mg DAILY ROSE Administration Famotidine 20 mg 01/25/19 21:00 Pepcid Iv IV PUSH Q12HR ROSE Folic Acid 1 mg 01/25/19 09:00 01/25/19 09:19 Folic Acid Inj IV PUSH 1
[2019-01-25] MEDS: LORAZEPAM INJ 2 MG/ML VIAL IV PUSH ×3 (18:37→23:24)
[2019-01-25] MEDS: MORPHINE SULFATE 4 MG/ML INJ IV PUSH (18:37)
[2019-01-25] MEDS: FAMOTIDINE 20 MG/2 ML VIAL IV PUSH (20:12)
[2019-01-25] MEDS: INSULIN GLARGINE (*BKC) 100 UNITS/ML 10 UNITS SUB-Q (20:19)
[2019-01-25 20:22] LABS: Glucose Point of Care 97 (65-105)
[2019-01-25 20:22] LABS: Glucose Point of Care 130 (65-105)
[2019-01-25] MEDS: hydrALAZINE HCL 20 MG/ML VIAL 10 MG IV PUSH (23:24)
[2019-01-25 23:34] LABS: Glucose Point of Care 105 (65-105)
[2019-01-26] VITALS (13 sets, daily range): BP systolic 112–157; BP diastolic 81–102; PULSE 57–72; RESP 14–25; TEMP 36.6–37; O2SAT 97–100
[2019-01-26] MEDS: LORAZEPAM INJ 2 MG/ML VIAL IV PUSH ×6 (00:59→19:58)
[2019-01-26] MEDS: LACTATED RINGERS 1,000 ML 150 ML IV CONT ×2 (02:37→08:44)
[2019-01-26 05:25] LABS: Blood Urea Nitrogen 3 mg/dL (9-20); Calcium 9.5 mg/dL (8.4-10.2); Carbon Dioxide 26 mmol/L (22-30); Chloride 109 mmol/L (98-107); Estimated CRCL calculation 217 ml/min; Estimated Glomerular Filt Rate > 60; Glucose 152 mg/dL (75-110); Potassium 3.6 mmol/L (3.4-5.0); Sodium 140 mmol/L (137-145)
[2019-01-26 05:30] LABS: Magnesium 1.5 mg/dL (1.6-2.3)
[2019-01-26 05:35] LABS: Triglycerides 246 mg/dL (<150)
[2019-01-26 07:43] LABS: Basophils Percent Auto 0.2 % (0.2-1.2); Eosinophils Absolute Auto 0.3 K/mm3 (0-0.3); Eosinophils Percent Auto 3.2 % (0-4.4); Hematocrit 41.4 % (42.0-52.0); Hemoglobin 13.9 g/dL (14.0-18.0); Immature Granulocyte Absolute 0.05 K/mm3 (0.00-0.031); Immature Granulocyte Percent A 0.5 % (0-0.5); Lymphocytes Absolute Auto 0.78 K/mm3 (0.9-3.2); Lymphocytes Percent Auto 7.9 % (18.3-44.2); Mean Corpuscular HGB Conc 33.6 g/dl (32-36); Mean Corpuscular Volume 98.3 fl (80-100); Mean Platelet Volume 10.5 fl (7.4-10.4); Monocytes Absolute Auto 0.4 K/mm3 (0.1-0.6); Monocytes Percent Auto 3.5 % (2.6-8.5); Neutrophils Absolute Auto 8.4 K/mm3 (1.3-6.7); Neutrophils Percent Auto 84.7 % (45.5-73.1); Platelet Count Result 147 k/mm3 (150-375); Red Blood Count 4.21 M/mm3 (4.6-6.20); White Blood Count 9.9 K/mm3 (4.5-10.0)
[2019-01-26] MEDS: FOLIC ACID 1 MG/0.2 ML INJ IV PUSH (08:12)
[2019-01-26] MEDS: THIAMINE HCL 200 MG/2 ML VIAL 100 MG IV PUSH (08:12)
[2019-01-26] MEDS: FAMOTIDINE 20 MG/2 ML VIAL IV PUSH ×2 (08:12→19:59)
[2019-01-26] MEDS: MAGNESIUM SULF 2 GM/WATER 50ML 2 GM/50 ML BAG IVPB (08:14)
[2019-01-26] MEDS: POTASSIUM PHOS,M-BASIC-D-BASIC 20 MMOL in SODIUM CHLORIDE 0.9% IV 250 ML 64 MMOL IVPB (08:23)
[2019-01-26] MEDS: MORPHINE SULFATE 4 MG/ML INJ IV PUSH ×5 (08:31→23:52)
--- NOTE | 2019-01-26 09:43 | WPDINTPN ---
Progress Note: A&P Assessment and Plan (1) Acute respiratory failure: Code(s): J96.00 - Acute respiratory failure, unspecified whether with hypoxia or hypercapnia Status: Acute Assessment and Plan: Pt was intubated due to severe agitation requiring sedation but self-extubated on 01/25. He is oxygenating well and protecting his airway. (2) Pancreatitis, acute: Qualifiers: Acute pancreatitis complication: unspecified Pancreatitis type: unspecified pancreatitis type Qualified Code(s): K85.90 - Acute pancreatitis without necrosis or infection, unspecified Code(s): K85.90 - Acute pancreatitis without necrosis or infection, unspecified Status: Acute Assessment and Plan: Due to alcohol abuse most likely. Triglycerides slightly elevated but not causing acute pancreatitis. Lipase is improving. Consider imaging if symptoms persist or worsen. No clinical signs of necrotizing pancreatitis. (3) Alcohol withdrawal: Code(s): F10.239 - Alcohol dependence with withdrawal, unspecified Status: Acute Assessment and Plan: Wean Precedex today. Continue CIWA with Ativan. Continue thiamine. (4) Type I diabetes mellitus: Qualifiers: Diabetes mellitus complication status: with hyperglycemia Qualified Code(s): E10.65 - Type 1 diabetes mellitus with hyperglycemia Code(s): E10.9 - Type 1 diabetes mellitus without complications Status: Chronic Assessment and Plan: Continue Lantus and SSI. (5) Tobacco abuse: Code(s): Z72.0 - Tobacco use Status: Acute Assessment and Plan: Continue nicotine patch. Pt will need counseling about cessation when able. Critical care time: 32 minutes. Subjective Interval history: Pt with acute alcoholic pancreatitis and alcohol withdrawal. He was intubated due to severe agitation but self-extubated yesterday evening. He remains on Precedex infusion. He denies any complaints today besides feeling hungry. Review of Systems Review of Systems: All systems reviewed & are unremarkable except as noted in HPI and below Exam Const: General: no acute distress Eyes: Pupils: PERRL Resp: Auscultation: clear to auscultation bilaterally Cardio: Rate: regular rate Rhythm: regular rhythm GI: Palpation (GI): Yes soft and No tender Auscultation: normal bowel sounds Skin: General skin exam: normal color Neuro: Speech: normal speech Motor exam (neuro): strength 5/5 throughout Extrem: General: normal to inspection Objective Data Vital Signs Vital Signs: Vital Signs - 24 hr 01/25/19 09:51 01/25/19 10:00 01/25/19 11:30 Temperature Pulse Rate 56 L 54 L 58 L Respiratory Rate 12 Blood Pressure 101/69 Pulse Oximetry 100 100 01/25/19 12:00 01/25/19 12:16 01/25/19 13:54 Temperature 35.6 C L Pulse Rate 53 L 53 L 60 Respiratory Rate Blood Pressure 101/72 104/79 Pulse Oximetry 100 100 01/25/19 14:00 01/25/19 14:45 01/25/19 16:00 Temperature Pulse Rate 54 L 57 L 59 L Respiratory Rate 16 Blood Pressure 107/77 Pulse Oximetry 100 100 01/25/19 17:20 01/25/19 18:00 01/25/19 20:00 Temperature 36.1 C L Pulse Rate 58 L 86 59 L Respiratory Rate 14 14 Blood Pressure 125/80 150/95 H Pulse Oximetry 100 100 99 01/25/19 22:00 01/26/19 00:00 01/26/19 02:00 Temperature 36.6 C 36.7 C Pulse Rate 60 66 71 Respiratory Rate 16 21 H 21 H Blood Pressure 167/105 H 151/98 H 154/94 H Pulse Oximetry 98 99 99 01/26/19 04:00 01/26/19 06:00 01/26/19 08:00 Temperature Pulse Rate 68 71 72 Respiratory Rate 25 H 24 H 18 Blood Pressure 154/100 H 146/87 H 144/89 H Pulse Oximetry 97 97 97 Intake/Output Intake/Output: Intake & Output 01/23/19 01/24/19 01/25/19 01/26/19 23:59 23:59 23:59 23:59 Intake Total 2832 4255.6667 4409.76 2950 Output Total 2150 1950 4460 2900 Balance 682 2305.6667 -50.24 50 Meds/Results Medications: Active Medications Generic Name Dose Rou
[2019-01-26 13:04] LABS: Glucose Point of Care 163 (65-105)
[2019-01-26 16:32] LABS: Glucose Point of Care 211 (65-105)
--- NOTE | 2019-01-26 16:56 | PM.IMPN ---
Progress Note: A&P Assessment and Plan (1) Pancreatitis, acute: Qualifiers: Acute pancreatitis complication: unspecified Pancreatitis type: unspecified pancreatitis type Qualified Code(s): K85.90 - Acute pancreatitis without necrosis or infection, unspecified Code(s): K85.90 - Acute pancreatitis without necrosis or infection, unspecified Status: Acute Assessment and Plan: bowel sounds increasing and tolerated clear liquids before became more agitated. Replace potassium, phos and mag (2) Type I diabetes mellitus: Qualifiers: Diabetes mellitus complication status: with hyperglycemia Qualified Code(s): E10.65 - Type 1 diabetes mellitus with hyperglycemia Code(s): E10.9 - Type 1 diabetes mellitus without complications Status: Chronic Assessment and Plan: Blood sugar fair controlled. Low-dose Lantus with sliding scale fbs 152 (3) Alcohol abuse: Code(s): F10.10 - Alcohol abuse, uncomplicated Status: Acute Assessment and Plan: thiamin. [place] DTs started 01/24 requiring further sedation and eventually intubation and [facility] ventilation. patient self extubated while under heavy sedation 01/25 pm (4) DVT prophylaxis: Code(s): Z29.9 - Encounter for prophylactic measures, unspecified Status: Acute Assessment and Plan: Lovenox Subjective Interval history: Date of visit 01/26. 39-year-old diabetic alcoholic admitted with recurrent pancreatitis. Became more agitiated 01/24 with more hallucinations and had to be sedated and intubated. currently calm with sedation and extubated self last pm 01/25 Exam Narrative: Exam Narrative: Blood pressure 156/100 pulse is 76 saturating 98% 2L NC Pupils equal , small, sclera anicteric Lungs clear CV regular rate rhythm no murmurs Abdomen soft bowel sounds are present today, Extremities without edema distal pulses are 2+ Neuro sedated but extubated and easily arousable Objective Data Vital Signs Vital Signs: Vital Signs - 24 hr 01/25/19 17:20 01/25/19 18:00 01/25/19 20:00 Temperature 36.1 C L Pulse Rate 58 L 86 59 L Respiratory Rate 14 14 Blood Pressure 125/80 150/95 H Pulse Oximetry 100 100 99 01/25/19 22:00 01/26/19 00:00 01/26/19 02:00 Temperature 36.6 C 36.7 C Pulse Rate 60 66 71 Respiratory Rate 16 21 H 21 H Blood Pressure 167/105 H 151/98 H 154/94 H Pulse Oximetry 98 99 99 01/26/19 04:00 01/26/19 06:00 01/26/19 08:00 Temperature Pulse Rate 68 71 72 Respiratory Rate 25 H 24 H 18 Blood Pressure 154/100 H 146/87 H 144/89 H Pulse Oximetry 97 97 97 01/26/19 10:00 01/26/19 12:00 01/26/19 14:00 Temperature Pulse Rate 66 62 60 Respiratory Rate 18 20 16 Blood Pressure 123/85 157/101 H 156/100 H Pulse Oximetry 100 100 100 01/26/19 16:00 01/26/19 16:42 Temperature 36.8 C Pulse Rate 57 L 57 L Respiratory Rate 20 Blood Pressure 156/102 H Pulse Oximetry Intake/Output Intake/Output: Intake & Output 01/23/19 01/24/19 01/25/19 01/26/19 23:59 23:59 23:59 23:59 Intake Total 2832 4255.6667 4409.76 3847 Output Total 2150 1950 4460 2900 Balance 682 2305.6667 -50.24 947 Meds/Results Medications: Active Medications Generic Name Dose Route Start Last Admin Trade Name Freq PRN Reason Stop Dose Admin Dextrose 12.5 gm 01/23/19 12:01 Dextrose 50% Syringe IV PUSH PRN PRN Hypoglycemia Protocol Enoxaparin Sodium 40 mg 01/24/19 09:00 01/26/19 08:57 Lovenox SUB-Q Not Given DAILY ROSE Famotidine 20 mg 01/25/19 21:00 01/26/19 08:12 Pepcid Iv IV PUSH 20 mg Q12HR ROSE Administration Folic Acid 1 mg 01/25/19 09:00 01/26/19 08:12 Folic Acid Inj IV PUSH 1 mg QAM ROSE Administration Glucagon 1 mg 01/23/19 12:01 Glucagon For Inj IM PRN PRN Hypoglycemia Protocol Glucose 15 gm 01/23/19 12:01 Glutose 15 PO PRN PRN Hypoglycemia Protocol Lactated Ringer's 1
[2019-01-26] MEDS: INSULIN ASPART (*BKC) 100 UNITS/ML SUB-Q ×2 (18:18→20:11)
[2019-01-26] MEDS: LACTATED RINGERS 1,000 ML 100 ML IV CONT (19:44)
[2019-01-26 20:10] LABS: Glucose Point of Care 237 (65-105)
[2019-01-26] MEDS: INSULIN GLARGINE (*BKC) 100 UNITS/ML 10 UNITS SUB-Q (20:11)
[2019-01-27] VITALS (15 sets, daily range): BP systolic 104–164; BP diastolic 59–93; PULSE 54–93; RESP 16–24; TEMP 36.4–37.1; O2SAT 95–100
[2019-01-27] MEDS: LORAZEPAM INJ 2 MG/ML VIAL IV PUSH ×5 (00:07→23:59)
[2019-01-27 05:32] LABS: Magnesium 1.2 mg/dL (1.6-2.3); Phosphorus 5.2 mg/dL (2.5-4.5)
[2019-01-27 05:33] LABS: Blood Urea Nitrogen 3 mg/dL (9-20); Calcium 8.5 mg/dL (8.4-10.2); Carbon Dioxide 26 mmol/L (22-30); Chloride 97 mmol/L (98-107); Estimated CRCL calculation 217 ml/min; Estimated Glomerular Filt Rate > 60; Glucose 339 mg/dL (75-110); Potassium 3.3 mmol/L (3.4-5.0); Sodium 134 mmol/L (137-145)
[2019-01-27] MEDS: LACTATED RINGERS 1,000 ML 100 ML IV CONT (05:41)
--- NOTE | 2019-01-27 08:10 | WPDINTPN ---
Progress Note: A&P Assessment and Plan (1) Acute respiratory failure: Code(s): J96.00 - Acute respiratory failure, unspecified whether with hypoxia or hypercapnia Status: Acute Assessment and Plan: Pt was intubated due to severe agitation requiring sedation but self-extubated on 01/25. He is oxygenating well and protecting his airway. (2) Pancreatitis, acute: Qualifiers: Acute pancreatitis complication: unspecified Pancreatitis type: unspecified pancreatitis type Qualified Code(s): K85.90 - Acute pancreatitis without necrosis or infection, unspecified Code(s): K85.90 - Acute pancreatitis without necrosis or infection, unspecified Status: Acute Assessment and Plan: Due to alcohol abuse most likely. Triglycerides slightly elevated but not causing acute pancreatitis. Lipase is improving. Consider imaging if symptoms persist or worsen. No clinical signs of necrotizing pancreatitis. (3) Alcohol withdrawal: Code(s): F10.239 - Alcohol dependence with withdrawal, unspecified Status: Acute Assessment and Plan: Wean Precedex today. Continue CIWA with Ativan. Continue thiamine. He appears motivated to quit alcohol. (4) Type I diabetes mellitus: Qualifiers: Diabetes mellitus complication status: with hyperglycemia Qualified Code(s): E10.65 - Type 1 diabetes mellitus with hyperglycemia Code(s): E10.9 - Type 1 diabetes mellitus without complications Status: Chronic Assessment and Plan: Continue Lantus and SSI. Increase Lantus dose today. (5) Tobacco abuse: Code(s): Z72.0 - Tobacco use Status: Acute Assessment and Plan: Continue nicotine patch. Pt will need counseling about cessation when able. Critical care time: 32 minutes. Subjective Interval history: Pt with acute alcoholic pancreatitis and alcohol withdrawal. He was intubated due to severe agitation but self-extubated yesterday evening. He remains on Precedex infusion. He denies any complaints today besides occasional abdominal pain. Review of Systems Review of Systems: All systems reviewed & are unremarkable except as noted in HPI and below Constitutional: Constitutional: Reports no additional constitutional complaints Eyes: Eyes: Reports no additional eye complaints ENT: Reports system reviewed and no additional complaints, except as documented Cardiovascular: Cardiovascular: Reports no additional cardiovascular complaints Respiratory: Respiratory: Reports no additional respiratory complaints Gastrointestinal: Gastrointestinal: Reports abdominal pain, Denies nausea and Denies vomiting Genitourinary: Genitourinary: Reports no additional male genitourinary complaints Musculoskeletal: Musculoskeletal: Reports no additional musculoskeletal complaints Integumentary/Breasts: Skin/Breast: Reports system reviewed and no additional complaints, except as docu Neurologic: Reports system reviewed and no additional complaints, except as documented Psychiatric: Psychiatric: Reports no additional psychiatric complaints Exam Const: General: no acute distress Eyes: Pupils: PERRL Resp: Auscultation: clear to auscultation bilaterally Cardio: Rate: regular rate Rhythm: regular rhythm GI: Inspection: non-distended Palpation (GI): Yes soft and No tender Auscultation: normal bowel sounds and abnormal bowel sounds (hypoactive) Urinary Catheter: Urinary Catheter: patent and draining Skin: General skin exam: normal color Neuro: Cranial nerves: Yes PERRL Speech: normal speech Motor exam (neuro): strength 5/5 throughout Extrem: General: normal to inspection and no edema Objective Data Vital Signs Vital Signs: Vital Signs - 24 hr 01/26/19 10:00 01/26/19 12:00 01/26/19 14:00 Temperature Pulse Rate 66 62 60 Pulse Rate [Bilateral Radial Palpation] Respiratory Rate 18 20 16 Blood Pressure 123/85 157/101 H 156/100 H Pulse Oximetry 100 100 100
[2019-01-27 08:34] LABS: Glucose Point of Care 263 (65-105)
[2019-01-27] MEDS: POTASSIUM CHLORIDE 20 MEQ TABLET 40 MEQ PO (08:35)
[2019-01-27] MEDS: MAGNESIUM SULF 2 GM/WATER 50ML 2 GM/50 ML BAG IVPB (08:35)
[2019-01-27] MEDS: ENOXAPARIN 40 MG/0.4 ML SYRINGE SUB-Q (08:36)
[2019-01-27] MEDS: FAMOTIDINE 20 MG/2 ML VIAL IV PUSH (08:36)
[2019-01-27] MEDS: THIAMINE HCL 200 MG/2 ML VIAL 100 MG IV PUSH (08:36)
[2019-01-27] MEDS: MORPHINE SULFATE 4 MG/ML INJ IV PUSH ×4 (08:38→22:35)
[2019-01-27] MEDS: INSULIN ASPART (*BKC) 100 UNITS/ML SUB-Q ×2 (08:44→12:09)
[2019-01-27] MEDS: FOLIC ACID 1 MG/0.2 ML INJ IV PUSH (08:52)
[2019-01-27] MEDS: CHLORDIAZEPOXIDE 25 MG CAPSULE 50 MG PO ×3 (11:13→22:35)
[2019-01-27 12:14] LABS: Glucose Point of Care 230 (65-105)
[2019-01-27 16:40] LABS: Glucose Point of Care 207 (65-105)
--- NOTE | 2019-01-27 17:15 | PM.IMPN ---
Progress Note: A&P Assessment and Plan (1) Pancreatitis, acute: Qualifiers: Acute pancreatitis complication: unspecified Pancreatitis type: unspecified pancreatitis type Qualified Code(s): K85.90 - Acute pancreatitis without necrosis or infection, unspecified Code(s): K85.90 - Acute pancreatitis without necrosis or infection, unspecified Status: Acute Assessment and Plan: bowel sounds increasing and tolerated clear liquids, advanced to regular diabetic today Replace potassium, and mag (2) Type I diabetes mellitus: Qualifiers: Diabetes mellitus complication status: with hyperglycemia Qualified Code(s): E10.65 - Type 1 diabetes mellitus with hyperglycemia Code(s): E10.9 - Type 1 diabetes mellitus without complications Status: Chronic Assessment and Plan: Blood sugar fair controlled. Low-dose Lantus with sliding scale increasing lantus with increasing diet (3) Alcohol abuse: Code(s): F10.10 - Alcohol abuse, uncomplicated Status: Acute Assessment and Plan: thiamin. [place] DTs started 01/24 requiring further sedation and eventually intubation and [facility] ventilation. patient self extubated while under heavy sedation 01/25 pm calm today with benzo and tapering precedex if off precedex later can move to floor (4) DVT prophylaxis: Code(s): Z29.9 - Encounter for prophylactic measures, unspecified Status: Acute Assessment and Plan: Lovenox Subjective Interval history: Date of visit 01/27. 39-year-old diabetic alcoholic admitted with recurrent pancreatitis. Became more agitiated 01/24 with more hallucinations and had to be sedated and intubated. currently calm with sedation and extubated self pm 01/25. weaning off precedex Exam Narrative: Exam Narrative: Blood pressure 124/84 pulse is 66 saturating 98% 2L NC Pupils equal , small, sclera anicteric Lungs clear CV regular rate rhythm no murmurs Abdomen soft bowel sounds are present today, Extremities without edema distal pulses are 2+ Neuro sedated but extubated and easily arousable and calm Objective Data Vital Signs Vital Signs: Vital Signs - 24 hr 01/26/19 18:00 01/26/19 20:00 01/26/19 22:00 Temperature 37.0 C Pulse Rate 59 L 63 58 L Pulse Rate [Bilateral Radial Palpation] Respiratory Rate 17 14 22 H Blood Pressure 150/95 H 112/86 124/81 Pulse Oximetry 99 99 01/27/19 00:00 01/27/19 02:00 01/27/19 04:00 Temperature 37.1 C 36.9 C Pulse Rate 58 L 56 L 54 L Pulse Rate [Bilateral Radial Palpation] 60 60 Respiratory Rate 16 18 20 Blood Pressure 113/74 147/89 H 155/93 H Pulse Oximetry 97 96 98 01/27/19 06:00 01/27/19 08:00 01/27/19 08:19 Temperature 37.1 C 36.9 C Pulse Rate 55 L 70 59 L Pulse Rate [Bilateral Radial Palpation] Respiratory Rate 20 17 16 Blood Pressure 136/91 H 164/92 H Pulse Oximetry 95 99 01/27/19 10:00 01/27/19 10:17 01/27/19 12:00 Temperature Pulse Rate 68 61 70 Pulse Rate [Bilateral Radial Palpation] Respiratory Rate 19 17 Blood Pressure 104/73 Pulse Oximetry 96 99 01/27/19 12:42 01/27/19 14:00 01/27/19 16:00 Temperature 36.4 C Pulse Rate 59 L 70 70 Pulse Rate [Bilateral Radial Palpation] Respiratory Rate 17 17 17 Blood Pressure 138/82 123/81 Pulse Oximetry 99 99 01/27/19 16:56 Temperature 36.9 C Pulse Rate 77 Pulse Rate [Bilateral Radial Palpation] Respiratory Rate 24 H Blood Pressure 140/90 Pulse Oximetry 100 Intake/Output Intake/Output: Intake & Output 01/24/19 01/25/19 01/26/19 01/27/19 23:59 23:59 23:59 23:59 Intake Total 4255.6667 4409.76 4947 2082 Output Total 1619 4460 4600 2100 Balance 2305.6667 -50.24 347 -18 Meds/Results Medications: Active Medications Generic Name Dose Route Start Last Admin Trade Name Freq PRN Reason Stop Dose Admin Chlordiazepoxide HCl 50 mg 01/27/19 12:00 01/27/19 16:34 Librium Po PO 50 mg Q6HR ROSE Administration Dext
--- NOTE | 2019-01-27 18:31 | PC.NURSE ---
This patient, Wes Pan II, was transferred to [ [id number]] on 01/27/19 at 1830. Personal belongings sent with patient. Belongings list checked and signed with receiving [ ]. Report given to [Danielle SYKES ]. Appropriate documentation sent with patient.
--- NOTE | 2019-01-27 18:41 | PC.NURSE ---
This patient, Wes Pan II, was received from [facility][ ] on 01/27/19 at 1841. Personal belongings list checked and signed. Patient/family oriented to unit policies and routines
[2019-01-27] MEDS: GABAPENTIN 400 MG CAPSULE 800 MG PO (19:47)
[2019-01-27] MEDS: INSULIN GLARGINE (*BKC) 100 UNITS/ML 20 UNITS SUB-Q (19:52)
[2019-01-27 21:16] LABS: Glucose Point of Care 328 (65-105)
[2019-01-28] MEDS: CHLORDIAZEPOXIDE 25 MG CAPSULE 50 MG PO ×2 (05:16→11:56)
[2019-01-28] MEDS: MORPHINE SULFATE 4 MG/ML INJ IV PUSH (05:17)
[2019-01-28 06:00] VITALS: BP 120/73; PULSE 69; RESP 16; TEMP 36.9; O2SAT 99
[2019-01-28] MEDS: LORAZEPAM INJ 2 MG/ML VIAL IV PUSH (06:24)
[2019-01-28 06:37] LABS: Magnesium 1.5 mg/dL (1.6-2.3); Phosphorus 3.7 mg/dL (2.5-4.5)
[2019-01-28 06:42] LABS: Blood Urea Nitrogen 9 mg/dL (9-20); Calcium 8.7 mg/dL (8.4-10.2); Carbon Dioxide 25 mmol/L (22-30); Chloride 97 mmol/L (98-107); Estimated CRCL calculation 189 ml/min; Estimated Glomerular Filt Rate > 60; Glucose 266 mg/dL (75-110); Potassium 3.7 mmol/L (3.4-5.0); Sodium 132 mmol/L (137-145)
[2019-01-28] MEDS: INSULIN ASPART (*BKC) 100 UNITS/ML SUB-Q (06:56)
[2019-01-28 07:00] LABS: Glucose Point of Care 251 (65-105)
[2019-01-28] MEDS: MAGNESIUM SULF 1 GM/D5W 100 ML 1 GM/100 ML BAG IVPB (07:59)
[2019-01-28] MEDS: GABAPENTIN 400 MG CAPSULE 800 MG PO (09:08)
--- NOTE | 2019-01-29 01:59 | DS_ITS ---
DATE OF DISCHARGE: 01/28/2019 DIAGNOSES: 1. Pancreatitis, alcohol-induced. 2. Alcohol abuse with withdrawal and delirium tremens. 3. Diabetes mellitus. HISTORY OF PRESENT ILLNESS: The patient is a 39-year-old, diabetic alcoholic with recurrent pancreatitis, discharged from the hospital on the after treatment for pancreatitis. He went home, was doing well for a couple days and started drinking heavily again. He presented with the abdominal pain, nausea, as he had in the past. His complete history and physical is enumerated in his admitting history and physical. On exam, the white count was 5.8, hemoglobin 14.4, hematocrit 41, MCV of 95, platelet 288, 56 segs, 34 lymphs. Blood gas 7.43, pCO2 31, PO2 91. Sodium 137, potassium 3.6, chloride 94, total CO2 of 25, BUN 6, creatinine 0.5, glucose 271. LFTs normal. Lipase was 1748. Urinalysis is negative. Alcohol level is 246. HOSPITAL COURSE: 1. The lipase quickly fell and he did quickly regain his bowel function within 48 hours back on clear liquids. He still complains of some abdominal pain. By the time of discharge, he was given 20 of the hydrocodone 5/325. He has had evaluation with sonograms and triglyceride evaluation and CT of the abdomen with no other etiology being found other than his alcohol. Encouraged once again to curtail alcohol consumption altogether. 2. Alcohol withdrawal with delirium tremens. The patient on the evening of the had some confusion, worsened throughout the day on the to the point with high-dose benzodiazepine and he was still threatening to walk out of the hospital. He was placed in the ICU and continued to hallucinate. He is given high dose sedatives with benzodiazepine, Precedex, propofol and fentanyl. At 1 point, he was intubated to help control his behavior and he within 36 hours self extubated himself with no adverse respiratory symptoms. On the evening of the , all IV sedation had been discontinued. He was up and about much calmer, coherent. On , he was up and about, again oriented and able to be discharged home. He was given Librium 25 mg, #20 to use q.6 p.r.n. and encouraged to follow up with the rehab program. 3. Diabetes mellitus. He has had DKA in the past, but was fairly well controlled on low-dose Lantus and sliding scale while here. Morning of discharge, his fasting sugar was 266 and he will resume his usual Lantus 25 b.i.d. and his NovoLog 5 with meals with a sliding scale. PROCEDURES DURING THIS HOSPITALIZATION: Include routine x-rays. CONSULTANTS: Dr. Buckner, crew leader gluing. CONDITION ON DISCHARGE: He was up and about. Blood pressure 120/70, pulse is 70, saturating 99% on room air. Lungs were clear. Abdomen is soft. Minimal tenderness. Good active bowel sounds. He had a bowel movement within the past 24 hours. He was discharged home to follow up with primary care within the next 2 to 3 weeks. ACTIVITY: As tolerated. DIET: Diabetic low-fat diet. MEDICATIONS: His list of discharge medications include: 1. Librium 25 q.6h p.r.n. 2. Hydrocodone 5/325 q.6 to 8 p.r.n. and 20 of each with no refill. 3. Gabapentin 800 t.i.d. 4. Lantus 25 units subcu q.12. 5. NovoLog 5 units with meals. This entire process took 35 minutes to complete. Reinaldo I MT: Onur CHINCHILLA
== END 2019-01-28 11:55 | disposition home or self-care (01) | DRG 282 ==
LOC: ANHED 22:19 → ANH2MED 01-23 00:45 → ANHICU 01-24 14:51 → ANH3MEDSUR 01-28 11:29 → ANHICU 02-04 09:26
PROVIDERS: Family Medicine; Internal Medicine; Internal Medicine Critical Care Medicine; Admitting Provider Internal Medicine; Emergency Provider Emergency Medicine; Family Provider Family Medicine; Visit Provider Internal Medicine
DX: K85.20 Alcohol induced acute pancreatitis without necrosis or infection (principal); F10.231 Alcohol dependence with withdrawal delirium; K21.9 Gastro-esophageal reflux disease without esophagitis; D64.9 Anemia, unspecified; F41.8 Other specified anxiety disorders; E10.65 Type 1 diabetes mellitus with hyperglycemia; F17.210 Nicotine dependence, cigarettes, uncomplicated; Z86.19 Personal history of other infectious and parasitic diseases; Z79.4 Long term (current) use of insulin
CPT/HCPCS: 31500; 36415; 36600; 80048; 80053; 80307; 81001; 82375; 82805; 82947; 83050; 83690; 83735; 84100; 84478; 85025; 94002; 96361; 96365; 96366; 96367; 96368; 96372; 96374; 96375; 96376; 97161; 97165; 99285; A9270; G0378; G0379; J0360; J1650; J1815; J2060; J2250; J2270; J2405; J2704; J3010; J3411; J3475; J7030; J7050; J7120